=== PATIENT | male | born 1955 | race American Indian/Alaskan Native ===

== ENCOUNTER 2016-10-27 07:22 | Emergency (ER) | payer MEDICARE ==
[2016-10-27 07:54] LABS: Basophils % (Auto) 0.5 % (0.0-1.8); Eosinophils % (Auto) 0.5 % (0.0-4.3); Hematocrit 32.8 % (35.5-45.6); Hemoglobin 10.7 gm/dl (11.8-15.2); Mean Corpuscular HGB Conc 33 % (32-34); Mean Corpuscular Hemoglobin 30 pg (28-32); Mean Corpuscular Volume 92 fl (84-94); Platelet Count 325 K/mm3 (140-440); Red Blood Count 3.58 M/mm3 (3.65-5.03); Red Cell Distribution Width 12.9 % (13.2-15.2)
--- NOTE | 2016-10-27 08:03 | Emergency Department Report ---
ED General Adult HPI - General Chief complaint: Hypoglycemia Stated complaint: LOW BLOOD SUGAR Time Seen by Provider: 10/27/16 08:02 Source: patient, EMS Mode of arrival: Stretcher Limitations: Other - History of Present Illness Initial comments: Patient took 75 of Lantus last night and became hypoglycemic this a.m. He was given D50 when his blood sugar was less than 30. EMS. He responded well. He was given a meal at the time of his arrival. He denies any intercurrent symptoms. He states he hasn't been feeling sick and denies any urinary change. He's had no fever or chills. Patient is found to have lower blood pressure he is taking torsemide and spironolactone. He is on Coumadin. He states he is due to have his INR checked at [facility]. He has had no signs of bleeding diathesis. -: Gradual Severity scale (0 -10): 0 Associated Symptoms: denies other symptoms - Related Data Home Medications Medication Instructions Recorded Confirmed Last Taken Acetaminophen/Codeine [Tylenol 1 tab PO QDAY 10/27/16 10/27/16 Unknown /Codeine # 3 tab] Baclofen [Lioresal] 5 mg PO TID 10/27/16 10/27/16 Unknown Gabapentin [Neurontin] 900 mg PO QHS 10/27/16 10/27/16 Unknown Insulin Glargine [Lantus] 85 unit SUB-Q QHS 10/27/16 10/27/16 Unknown Insulin Regular, Human [HumuLIN R] 15 unit SQ [facility] 10/27/16 10/27/16 Unknown Insulin Regular, Human [HumuLIN R] 22 unit SQ [facility] 10/27/16 10/27/16 Unknown Losartan [Cozaar] 50 mg PO QDAY 10/27/16 10/27/16 Unknown Metoprolol Succinate 300 mg PO QDAY 10/27/16 10/27/16 Unknown Nortriptyline [Pamelor] 50 mg PO QDAY 10/27/16 10/27/16 Unknown Simvastatin [Zocor TAB] 40 mg PO QHS 10/27/16 10/27/16 Unknown Spironolactone [Aldactone] 25 mg PO QDAY 10/27/16 10/27/16 Unknown Torsemide [Demadex] 40 mg PO QDAY 10/27/16 10/27/16 Unknown Warfarin [Coumadin] 7.5 mg PO QDAY 10/27/16 10/27/16 Unknown traMADol [Ultram] 50 mg PO Q4HR PRN 10/27/16 10/27/16 Unknown Allergies Allergy/AdvReac Type Severity Reaction Status Date / Time lisinopril Allergy Unknown Verified 10/27/16 07:33 ED Review of Systems ROS: Stated complaint: LOW BLOOD SUGAR Other details as noted in HPI Constitutional: denies: chills, fever Eyes: denies: eye pain, eye discharge, vision change ENT: denies: ear pain, throat pain Respiratory: denies: cough, shortness of breath, wheezing Cardiovascular: denies: chest pain, palpitations Endocrine: no symptoms reported Gastrointestinal: denies: abdominal pain, nausea, diarrhea Genitourinary: denies: urgency, dysuria Musculoskeletal: denies: back pain, joint swelling, arthralgia Skin: denies: rash, lesions Neurological: denies: headache, weakness, paresthesias Psychiatric: denies: anxiety, depression Hematological/Lymphatic: denies: easy bleeding, easy bruising ED Past Medical Hx - Past Medical History Previous Medical History?: Yes Hx Hypertension: Yes Hx Congestive Heart Failure: Yes Hx Diabetes: Yes Additional medical history: afib - Social History Smoking Status: Never Smoker Substance Use Type: None - Medications Home Medications: Home Medications Medication Instructions Recorded Confirmed Last Taken Type Acetaminophen/Codeine [Tylenol 1 tab PO QDAY 10/27/16 10/27/16 Unknown History /Codeine # 3 tab] Baclofen [Lioresal] 5 mg PO TID 10/27/16 10/27/16 Unknown History Gabapentin [Neurontin] 900 mg PO QHS 10/27/16 10/27/16 Unknown History Insulin Glargine [Lantus] 85 unit SUB-Q QHS 10/27/16 10/27/16 Unknown History Insulin Regular, Human [HumuLIN R] 15 unit SQ [facility] 10/27/16 10/27/16 Unknown History Insulin Regular, Human [HumuLIN R] 22 unit SQ [facility] 10/27/16 10/27/16 Unknown History Losartan [Cozaar] 50 mg PO QDAY 10/27/16 10/27/16 Unknown History Metoprolol Succinate 300 mg PO QDAY 10/27/16 10/27/16 Unknown History Nortriptyline [Pamelor] 50 mg PO QDAY 10/27/16 10/27/16 Unknown History Simvastatin [Zocor TAB] 40 mg PO QHS 10/27/16 10/27/16 Unknown History Spironolactone [Aldactone] 25 mg PO QDAY 10/27/16 10/27/16 Unknown History Torsemide [Demadex] 40 mg PO QDAY 10/27/16 10/27/16 Unknown History Warfarin [Coumadin] 7.5 mg PO QDAY 10/27/16 10/27/16 Unknown History traMADol [Ultram] 50 mg PO Q4HR PRN 10/27/16 10/27/16 Unknown History ED Physical Exam - General General appearance: alert, in no apparent distress - Head Head exam: Present: atraumatic, normocephalic - Eye Eye exam: Present: normal appearance - ENT ENT exam: Present: mucous membranes moist - Neck Neck exam: Present: normal inspection - Respiratory Respiratory exam: Present: normal lung sounds bilaterally. Absent: respiratory distress - Cardiovascular Cardiovascular Exam: Present: regular rate, irregular rhythm. Absent: systolic murmur, diastolic murmur, rubs, gallop - GI/Abdominal GI/Abdominal exam: Present: soft, normal bowel sounds. Absent: distended, tenderness, guarding, rebound, rigid - Rectal Rectal exam: Present: deferred - Extremities Exam Extremities exam: Present: normal inspection - Back Exam Back exam: Present: normal inspection - Neurological Exam Neurological exam: Present: alert, oriented X3, CN II-XII intact. Absent: motor sensory deficit - Psychiatric Psychiatric exam: Present: normal affect, normal mood - Skin Skin exam: Present: warm, dry, intact, normal color. Absent: rash ED Course Vital Signs 10/27/16 10/27/16 10/27/16 07:19 07:20 07:33 Temperature 97.9 F Pulse Rate 100 H Respiratory 16 Rate Blood Pressure 108/57 108/57 Blood Pressure 108/72 [Right] O2 Sat by Pulse 96 95 99 Oximetry 10/27/16 07:37 Temperature Pulse Rate Respiratory 16 Rate Blood Pressure Blood Pressure [Right] O2 Sat by Pulse 99 Oximetry - Reevaluation(s) Reevaluation #1: Patient systolic remained at or below 100. He will be taken off his spironolactone and consideration of his lower blood pressure as well as the hyperkalemia. I don't think he requires acute treatment at this level other than discontinuance of medication. He is referred back to [facility] for assessment of his electrolytes blood pressure and INR near term. This is been discussed with the family as well. 10/27/16 09:20 ED Medical Decision Making - Lab Data Result diagrams: 10/27/16 07:39 10/27/16 07:39 Critical care attestation.: If time is entered above; I have spent that time in minutes in the direct care of this critically ill patient, excluding procedure time. ED Disposition Clinical Impression: Hypoglycemia due to type 2 diabetes mellitus, Hyperkalemia Disposition: DC-01 TO HOME OR SELFCARE Is pt being admited?: No Does the pt Need Aspirin: No Condition: Stable Instructions: Diabetes Mellitus Type 2 in Adults (ED), Diabetic Hypoglycemia ( ED), Hyperkalemia (ED) Additional Instructions: Her potassium was found to be 5.2. This is mildly elevated and probably due to your spironolactone. Her blood pressure was low normal. Therefore, I would recommend that you stop the spironolactone for now. You need an INR checked at [facility]. At that time they can reassess her potassium and blood pressure. Your Lantus dose is really quite high. He needs to be adjusted depending on your bedtime Accu-Chek. I would decrease it to 40 from 75 or as per [facility] and your Accu-Cheks. You should be checking your sugar about 3 times a day. Referrals: PRIMARY CARE [Primary Care Provider] - 3-5 Days [facility] [Provider Group] - 24 Hours Time of Disposition: 09:23
[2016-10-27 08:10] LABS: Anion Gap 15 mmol/L; BUN/Creatinine Ratio 16.66; Blood Urea Nitrogen 20 mg/dL (9-20); Calcium 8.7 mg/dL (8.4-10.2); Carbon Dioxide 29 mmol/L (22-30); Chloride 95.9 mmol/L (98-107); Glucose 173 mg/dL (75-100); Potassium 5.2 mmol/L (3.6-5.0); Sodium 135 mmol/L (137-145)
[2016-10-27 09:49] VITALS: BP 120/69
== END 2016-10-27 09:49 | disposition home or self-care (01) ==
LOC: ED 07:22
DX: E11.649 Type 2 diabetes mellitus with hypoglycemia without coma (principal); E87.5 Hyperkalemia; I11.0 Hypertensive heart disease with heart failure; I50.9 Heart failure, unspecified; Z79.01 Long term (current) use of anticoagulants; Z79.4 Long term (current) use of insulin; Z88.8 Allergy status to other drugs, medicaments and biological substances
CPT/HCPCS: 36415; 80048; 82962; 85025; 99284